=== PATIENT | male | born 1980 | race Caucasian/White ===

== ENCOUNTER 2016-02-23 18:54 | Inpatient (IN) | payer OTHER ==
[2016-02-23 19:13] VITALS: BMI 28.7
--- NOTE | 2016-02-23 19:24 | HP ---
CIWA Score - CIWA Score Nausea/Vomitin Muscle Tremors: 4-Moderate,w/Arms Extend Anxiety: 4-Mod. Anxious/Guarded Agitation: 4-Moderately Restless Paroxysmal Sweats: 3 Orientation: 0-Oriented Tacttile Disturbances: 0-None Auditory Disturbances: 0-None Visual Disturbances: 0-None Headache: 0-None Present CIWA-Ar Total Score: 17 Admission ROS BHS - HPI Chief Complaint: WITHDRAWAL SX. Allergies/Adverse Reactions: Allergies Allergy/AdvReac Type Severity Reaction Status Date / Time No Known Allergies Allergy Verified 12/29/13 19:32 History of Present Illness: 35 Y/O MAN WITH A LONG HX. OF ALCOHOLISM IS ADMITTED FOR DETOX. PT. HAS BEEN IN PREVIOUS DETOX, DENIES SIGNIFICANT SOBRIETY. Exam Limitations: No Limitations - Ebola screening Have you traveled outside of the country in the last 21 days: No (N) Have you had contact with anyone from an Ebola affected area: No Have you been sick,other than usual withdrawal symptoms: No Do you have a fever: No - Review of Systems Constitutional: Diaphoresis EENT: reports: No Symptoms Reported Respiratory: reports: No Symptoms reported Cardiac: reports: No Symptoms Reported GI: reports: Nausea, Abdominal cramping : reports: Frequency Musculoskeletal: reports: No Symptoms Reported Integumentary: reports: Sweating Neuro: reports: Tremors, Other (FREQUENT BLACKOUTS) Endocrine: reports: No Symptoms Reported Hematology: reports: No Symptoms Reported Psychiatric: reports: No Sypmtoms Reported Other Systems: Reviewed and Negative Patient History - Patient Medical History Hx Anemia: No Hx Asthma: No Hx Chronic Obstructive Pulmonary Disease (COPD): No Hx Cancer: No Hx Cardiac Disorders: No Hx Congestive Heart Failure: No Hx Hypertension: No Hx Hypercholesterolemia: No Hx Pacemaker: No HX Cerebrovascular Accident: No Hx Seizures: No Hx Dementia: No Hx Diabetes: No Hx Gastrointestinal Disorders: No Hx Liver Disease: No Hx Genitourinary Disorders: No Hx Sexually Transmitted Disorders: No Hx Renal Disease (ESRD): No Hx Thyroid Disease: No Hx Human Immunodeficiency Virus (HIV): No Hx Hepatitis C: No Hx Depression: Yes Hx Suicide Attempt: No Hx Bipolar Disorder: No Hx Schizophrenia: No - Patient Surgical History Past Surgical History: Yes Hx Neurologic Surgery: No Hx Cataract Extraction: No Hx Cardiac Surgery: No Hx Lung Surgery: No Hx Breast Surgery: No Hx Breast Biopsy: No Hx Abdominal Surgery: Yes (RIGHT INGUINAL HERNIA AT AGE 9 MONTHS) Hx Appendectomy: No Hx Cholecystectomy: No Hx Genitourinary Surgery: No Hx Section: No Hx Orthopedic Surgery: No Other Surgical History: DRAINAGE OF ABSCESS LEFT BUTTOCK AT [facility] IN 09/04 Anesthesia Reaction: No - PPD History Previous Implant?: Yes Documented Results: Negative w/proof Implanted On Prior [facility] Admission?: Yes Date: 07/16/15 Results: 0mm PPD to be Administered?: No - Smoking Cessation Smoking history: Current every day smoker Have you smoked in the past 12 months: Yes Aproximately how many cigarettes per day: 20 Hx Chewing Tobacco Use: No Initiated information on smoking cessation: Yes 'Breaking Loose' booklet given: 02/23/16 - Substance & Tx. History Hx Alcohol Use: Yes Hx Substance Use: Yes Substance Use Type: Alcohol, Cocaine Hx Substance Use Treatment: Yes (DETOX) - Substances Abused Alcohol Route: Oral Frequency: Daily Amount used: BEER 4(6 PACKS) VODKA 1 PINT Age of first use: 12 Date of Last Use: 02/23/16 Cocaine Route: Inhalation Frequency: Daily Amount used: 1 GRAM Age of first use: 18 Date of Last Use: 02/23/16 Family Disease History - Family Disease History Family Disease History: Other: Father (ALCOHOL), Brother (ALCOHOL) Admission Physical Exam S - Vital Signs Vital Signs: Vital Signs - 24 hr 02/23/16 19:05 Temperature 97.0 F L Pulse Rate 85 Respiratory 20 Rate Blood Pressure 124/78 - Physical General Appearance: Yes: Alcohol on Breath, Tremorous, Irritable, Sweating, Anxious HEENTM: Yes: Within Normal Limits Respiratory: Yes: Chest Non-Tender, Lungs Clear, Normal Breath Sounds Neck: Yes: Supple Breast: Yes: Breast Exam Deferred Cardiology: Yes: Regular Rhythm, Regular Rate, S1, S2 Abdominal: Yes: Normal Bowel Sounds, Non Tender, Flat, Soft Genitourinary: Yes: Within Normal Limits Back: Yes: Within Normal Limits Musculoskeletal: Yes: Within Normal Limits Extremities: Yes: Within Normal Limits Neurological: Yes: Fully Oriented, Alert Integumentary: Yes: Diaphoresis Lymphatic: Yes: Within Normal Limits - Diagnostic (1) Alcohol dependence with uncomplicated withdrawal Current Visit: Yes Status: Acute (2) Cocaine dependence Current Visit: Yes Status: Acute Qualifiers: Substance use status: uncomplicated Qualified Code(s): F14.20 - Cocaine dependence, uncomplicated (3) Nicotine dependence Current Visit: Yes Status: Chronic Qualifiers: Nicotine product type: cigarettes Substance use status: uncomplicated Qualified Code(s): F17.210 - Nicotine dependence, cigarettes, uncomplicated Cleared for Admission BHS - Detox or Rehab [facility] Level of Care: Medically Managed Detox Regimen/Protocol: Librium S Breath Alcohol Content Breath Alcohol Content: 0.263 Urine Drug Screen - Results Drug Screen Negative: No Urine Drug Screen Results: BZO-Benzodiazepines
[2016-02-23] MEDS ORDERED: MAGNESIUM CITRATE 300 ML BOTTLE PO PRN (19:32)
[2016-02-23] MEDS ORDERED: chlordiazePOXIDE HCL 25 MG CAPSULE PO PRN (19:32)
[2016-02-23] MEDS ORDERED: MENTHOL/PHENOL 1 EACH UD MM PRN (19:32)
[2016-02-23] MEDS ORDERED: MAG HYDROX/AL HYDROX/SIMETH 30 ML UNIT-DOSE CUP PO PRN (19:32)
[2016-02-23] MEDS ORDERED: P-EPHED 60MG/TRIPROLIDI 2.5MG TABLET PO PRN (19:32)
[2016-02-23] MEDS ORDERED: chlordiazePOXIDE HCL 25 MG CAPSULE PO ONE (19:32)
[2016-02-23] MEDS ORDERED: NICOTINE POLACRILEX 2 MG GUM BC PRN (19:32)
[2016-02-23] MEDS ORDERED: hydrOXYzine PAMOATE 50 MG CAPSULE (FP) PO PRN (19:32)
[2016-02-23] MEDS ORDERED: MAGNESIUM HYDROX 2400MG/30ML ORAL SUSPENSION 30 ML CUP PO PRN (19:32)
[2016-02-23] MEDS ORDERED: guaiFENesin/D-METHORPHAN HB 10 ML UNIT-DOSE CUPS PO PRN (19:32)
[2016-02-23] MEDS ORDERED: LOPERAMIDE HCL 2 MG CAPSULE PO PRN (19:32)
[2016-02-23] MEDS ORDERED: ACETAMINOPHEN 325 MG TABLET (FP) PO PRN (19:32)
[2016-02-23] MEDS ORDERED: IBUPROFEN 400 MG TABLET (FP) PO PRN (19:32)
[2016-02-23] MEDS: NICOTINE 21 MG/24 HOURS TOPICAL PATCH TD SCH (20:10)
[2016-02-23] MEDS: chlordiazePOXIDE HCL 25 MG CAPSULE PO SCH (22:12)
[2016-02-23] MEDS: THIAMINE HCL 100 MG TABLET (FP) PO SCH (22:12)
[2016-02-23] MEDS: diphenhydrAMINE HCL 50 MG CAPSULE PO PRN (22:13)
[2016-02-24] MEDS: chlordiazePOXIDE HCL 25 MG CAPSULE PO SCH ×4 (05:40→22:13)
[2016-02-24 09:47] LABS: MCH 31.8 pg (25.7-33.7); MCHC 33.7 g/dl (32.0-35.9); MEAN CELL VOLUME 94.4 fl (80-96); MEAN PLT VOLUME 8.2 fl (7.5-11.1); PLATELET COUNT 356 K/MM3 (134-434); RDW 13.9 % (11.9-15.9); WHITE BLOOD COUNT 7.2 K/mm3 (4.0-10.0)
[2016-02-24] MEDS: NICOTINE 21 MG/24 HOURS TOPICAL PATCH TD SCH (10:06)
[2016-02-24] MEDS: PRENATAL VITAMINS W/ FOLIC ACID TABLET (FP) PO SCH (10:06)
[2016-02-24 10:15] LABS: ALBUMIN 3.9 g/dl (3.4-5.0); ALK PHOS 78 U/L (45-117); ANION GAP 7 (8-16); BILIRUBIN,TOTAL 0.5 mg/dL (0.2-1.0); CALCIUM 9.1 mg/dL (8.5-10.1); CO2 27 mmol/L (21-32); CREATININE 0.8 mg/dL (0.7-1.3); GLUCOSE,RANDOM 87 mg/dL (74-106); SGOT/AST 32 U/L (15-37); SGPT/ALT 44 U/L (12-78)
--- NOTE | 2016-02-24 13:56 | PN ---
S CIWA - CIWA Score Nausea/Vomitin Muscle Tremors: 4-Moderate,w/Arms Extend Anxiety: 4-Mod. Anxious/Guarded Agitation: 4-Moderately Restless Paroxysmal Sweats: 3 Orientation: 0-Oriented Tacttile Disturbances: 0-None Auditory Disturbances: 0-None Visual Disturbances: 0-None Headache: 0-None Present CIWA-Ar Total Score: 17 BHS Progress Note (SOAP) Subjective: ANXIETY,TREMORS,SWEATING,INTERRUPTED SLEEP,RESTLESS. Objective: 02/24/16 13:53 Vital Signs - 8 hr 02/24/16 02/24/16 02/24/16 06:00 10:00 13:40 Temperature 98.2 F 97.9 F 98.1 F Pulse Rate 76 67 69 Respiratory 18 18 18 Rate Blood Pressure 121/70 127/66 120/78 Laboratory Tests 02/24/16 02/24/16 07:20 07:30 WBC 7.2 RBC 4.06 Hgb 12.9 Hct 38.3 MCV 94.4 MCHC 33.7 RDW 13.9 Plt Count 356 D MPV 8.2 Sodium 141 Potassium 4.5 Chloride 107 Carbon Dioxide 27 Anion Gap 7 L BUN 13 Creatinine 0.8 Creat Clearance w eGFR > 60 Random Glucose 87 Calcium 9.1 Total Bilirubin 0.5 D AST 32 D ALT 44 D Alkaline Phosphatase 78 Total Protein 7.0 Albumin 3.9 LABS NOTED Assessment: 02/24/16 13:56 WITHDRAWAL SX. Plan: CONTINUE DETOX
[2016-02-24] MEDS: diphenhydrAMINE HCL 50 MG CAPSULE PO PRN (22:13)
[2016-02-24] MEDS: THIAMINE HCL 100 MG TABLET (FP) PO SCH (22:14)
[2016-02-24 23:04] LABS: URINE APPEARANCE CLEAR; URINE BILIRUBIN NEGATIVE (NEGATIVE); URINE BLOOD NEGATIVE (NEGATIVE); URINE COLOR STRAW; URINE GLUCOSE (UA) NEGATIVE (NEGATIVE); URINE KETONE NEGATIVE (NEGATIVE); URINE LEUK ESTERASE NEGATIVE (NEGATIVE); URINE NITRITE NEGATIVE (NEGATIVE); URINE PROTEIN NEGATIVE (NEGATIVE); URINE UROBILINOGEN NEGATIVE E.U./dl (0.2-1.0)
[2016-02-25] MEDS: chlordiazePOXIDE HCL 25 MG CAPSULE PO SCH ×3 (05:42→17:34)
[2016-02-25] MEDS: PRENATAL VITAMINS W/ FOLIC ACID TABLET (FP) PO SCH (10:26)
[2016-02-25] MEDS: NICOTINE 21 MG/24 HOURS TOPICAL PATCH TD SCH (10:27)
--- NOTE | 2016-02-25 10:54 | PN ---
S CIWA - CIWA Score Nausea/Vomitin Muscle Tremors: 3 Anxiety: 2 Agitation: 2 Paroxysmal Sweats: 1-Minimal Palms Moist Orientation: 0-Oriented Tacttile Disturbances: 1-Very Mild Itch/Numbness Auditory Disturbances: 1-Very Mild Visual Disturbances: 1-Very Mild Sensitivity Headache: 2-Mild CIWA-Ar Total Score: 16 BHS Progress Note (SOAP) Subjective: ALERT,IRRITABLE,ANXIOUS,INTERRUPTED SLEEP Objective: 02/25/16 10:53 Vital Signs Temperature 98.6 F 02/25/16 10:22 Pulse Rate 73 02/25/16 10:22 Respiratory Rate 18 02/25/16 10:22 Blood Pressure 121/78 02/25/16 10:22 O2 Sat by Pulse Oximetry (%) Laboratory Last Values WBC 7.2 K/mm3 (4.0-10.0) 02/24/16 07:30 RBC 4.06 M/mm3 (4.00-5.60) 02/24/16 07:30 Hgb 12.9 GM/dL (11.7-16.9) 02/24/16 07:30 Hct 38.3 % (35.4-49) 02/24/16 07:30 MCV 94.4 fl (80-96) 02/24/16 07:30 MCHC 33.7 g/dl (32.0-35.9) 02/24/16 07:30 RDW 13.9 % (11.9-15.9) 02/24/16 07:30 Plt Count 356 K/MM3 (134-434) D 02/24/16 07:30 MPV 8.2 fl (7.5-11.1) 02/24/16 07:30 Sodium 141 mmol/L (136-145) 02/24/16 07:20 Potassium 4.5 mmol/L (3.5-5.1) 02/24/16 07:20 Chloride 107 mmol/L (98-107) 02/24/16 07:20 Carbon Dioxide 27 mmol/L (21-32) 02/24/16 07:20 Anion Gap 7 (8-16) L 02/24/16 07:20 BUN 13 mg/dL (7-18) 02/24/16 07:20 Creatinine 0.8 mg/dL (0.7-1.3) 02/24/16 07:20 Creat Clearance w eGFR > 60 (>60) 02/24/16 07:20 Random Glucose 87 mg/dL (74-106) 02/24/16 07:20 Calcium 9.1 mg/dL (8.5-10.1) 02/24/16 07:20 Total Bilirubin 0.5 mg/dL (0.2-1.0) D 02/24/16 07:20 AST 32 U/L (15-37) D 02/24/16 07:20 ALT 44 U/L (12-78) D 02/24/16 07:20 Alkaline Phosphatase 78 U/L (45-117) 02/24/16 07:20 Total Protein 7.0 g/dl (6.4-8.2) 02/24/16 07:20 Albumin 3.9 g/dl (3.4-5.0) 02/24/16 07:20 Urine Color Straw 02/24/16 22:45 Urine Appearance Clear 02/24/16 22:45 Urine pH 6.0 (5.0-8.0) 02/24/16 22:45 Ur Specific [place] 1.006 (1.001-1.035) 02/24/16 22:45 Urine Protein Negative (NEGATIVE) 02/24/16 22:45 Urine Glucose (UA) Negative (NEGATIVE) 02/24/16 22:45 Urine Ketones Negative (NEGATIVE) 02/24/16 22:45 Urine Blood Negative (NEGATIVE) 02/24/16 22:45 Urine Nitrite Negative (NEGATIVE) 02/24/16 22:45 Urine Bilirubin Negative (NEGATIVE) 02/24/16 22:45 Urine Urobilinogen Negative E.U./dl (0.2-1.0) 02/24/16 22:45 Ur Leukocyte Esterase Negative (NEGATIVE) 02/24/16 22:45 RPR Titer Nonreactive (NONREACTIVE) 02/24/16 07:20 Assessment: 02/25/16 10:53 WITHDRAWAL SYMPTOM Plan: CONTINUE DETOX
--- NOTE | 2016-02-25 14:43 | PN ---
[facility] Progress Note Note: Psychiatry Attending's note: Approached for psychiatric evaluation. Patient declined." I don't need psychiatrists.I need my counselor." Mr Sumner,calmly,walked out of the consultation office. Discussed with nursing staff.
[2016-02-25] MEDS: diphenhydrAMINE HCL 50 MG CAPSULE PO PRN (22:05)
[2016-02-25] MEDS: THIAMINE HCL 100 MG TABLET (FP) PO SCH (22:05)
[2016-02-25] MEDS: chlordiazePOXIDE 5 MG CAPSULE PO SCH (22:06)
[2016-02-26] MEDS: chlordiazePOXIDE 5 MG CAPSULE PO SCH ×3 (05:13→17:20)
--- NOTE | 2016-02-26 10:27 | PN ---
BHS Progress Note (SOAP) Subjective: agitation anxiety little sweats Objective: 02/26/16 10:26 Vital Signs Temperature 97 F L 02/26/16 06:50 Pulse Rate 51 L 02/26/16 06:50 Respiratory Rate 16 02/26/16 06:50 Blood Pressure 118/74 02/26/16 06:50 O2 Sat by Pulse Oximetry (%) awake/alert ambulating no acute distress Assessment: 02/26/16 10:26 withdrawal sx Plan: continue detox increase fluids d/c in am
[2016-02-26] MEDS: PRENATAL VITAMINS W/ FOLIC ACID TABLET (FP) PO SCH (10:28)
[2016-02-26] MEDS: NICOTINE 21 MG/24 HOURS TOPICAL PATCH TD SCH (10:28)
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
[2016-02-26] MEDS: diphenhydrAMINE HCL 50 MG CAPSULE PO PRN (22:20)
[2016-02-26] MEDS: chlordiazePOXIDE HCL 10 MG CAPSULE PO SCH (22:20)
[2016-02-26] MEDS: THIAMINE HCL 100 MG TABLET (FP) PO SCH (22:20)
[2016-02-27] MEDS: chlordiazePOXIDE HCL 10 MG CAPSULE PO SCH (05:57)
[2016-02-27 06:35] VITALS: BP 104/66; PULSE 60; TEMP 98.2
--- NOTE | 2016-02-27 09:02 | DS ---
[facility] Detox Discharge Summary Admission Date: 02/23/16 Discharge Date: 02/27/16 - History Present History: Alcohol Dependence, Cocaine Dependence - Physical Exam Results Vital Signs: Vital Signs Temperature 98.2 F 02/27/16 06:34 Pulse Rate 60 02/27/16 06:34 Respiratory Rate 16 02/27/16 06:34 Blood Pressure 104/66 02/27/16 06:34 O2 Sat by Pulse Oximetry (%) - Treatment Hospital Course: Detox Protocol Followed, Detoxed Safely, Responded well, Discharged Condition Good - Medication Discharge Medications: Ambulatory Orders NK [No Known Home Medication] 12/24/13 - Diagnosis (1) Alcohol dependence with uncomplicated withdrawal Current Visit: Yes Status: Chronic (2) Cocaine dependence Current Visit: Yes Status: Chronic Qualifiers: Substance use status: uncomplicated Qualified Code(s): F14.20 - Cocaine dependence, uncomplicated (3) Nicotine dependence Current Visit: Yes Status: Chronic Qualifiers: Nicotine product type: cigarettes Substance use status: uncomplicated Qualified Code(s): F17.210 - Nicotine dependence, cigarettes, uncomplicated (4) Contusion of right eyebrow Current Visit: No Status: Acute Qualifiers: Encounter type: subsequent encounter Qualified Code(s): S00.11XD - Contusion of right eyelid and periocular area, subsequent encounter (5) Depression Current Visit: Yes Status: Chronic Qualifiers: Depression Type: unspecified Qualified Code(s): F32.9 - Major depressive disorder, single episode, unspecified - AMA Did Patient Leave Against Medical Advice: No
== END 2016-02-27 10:45 | disposition home or self-care (01) | DRG 774 ==
LOC: YASAS 18:54 → Y6N 19:15
PROVIDERS: ADMIT Internal Medicine; ATTEND Internal Medicine
PROC: HZ2ZZZZ Detoxification Services for Substance Abuse Treatment (ICD-10-PCS; principal; 2016-02-23)
DX: F10.230 Alcohol dependence with withdrawal, uncomplicated (principal); F14.20 Cocaine dependence, uncomplicated; F17.210 Nicotine dependence, cigarettes, uncomplicated; F32.9 Major depressive disorder, single episode, unspecified; S00.11XA Contusion of right eyelid and periocular area, initial encounter; Y00.XXXA Assault by blunt object, initial encounter; Y93.89 Activity, other specified; Y92.238 Other place in hospital as the place of occurrence of the external cause
CPT/HCPCS: 36415; 80053; 81003; 85027; 86593; 93005; 93010

== ENCOUNTER 2016-03-13 08:49 | Inpatient (IN) | payer OTHER ==
[2016-03-13 09:03] VITALS: BMI 27.3
--- NOTE | 2016-03-13 12:55 | HP ---
Admission [facility] Chief Complaint: REHAB TX FOR ALCOHOL AND COCAINE DEPENDENCE Allergies/Adverse Reactions: Allergies Allergy/AdvReac Type Severity Reaction Status Date / Time No Known Allergies Allergy Verified 12/29/13 19:32 History of Present Illness: 35 Y/O H/M WITH A HX OF ALCOHOL AND COCAINE DEPENDENCE SEEKING REHAB TX. PT DETOXED HERE TILL 02/27/16. Exam Limitations: No Limitations - Ebola screening Have you traveled outside of the country in the last 21 days: No Have you had contact with anyone from an Ebola affected area: No Have you been sick,other than usual withdrawal symptoms: No - Review of Systems Constitutional: Chills, Night Sweats EENT: reports: No Symptoms Reported Respiratory: reports: No Symptoms reported Cardiac: reports: Lightheadedness GI: reports: Diarrhea, Nausea, Vomiting, Indigestion : reports: No Symptoms Reported Musculoskeletal: reports: No Symptoms Reported Integumentary: reports: No Symptoms Reported Neuro: reports: Headache, Tremors, Dizziness Endocrine: reports: No Symptoms Reported Hematology: reports: No Symptoms Reported Psychiatric: reports: Orientated x3, Anxious, Depressed Other Systems: Reviewed and Negative Patient History - Patient Medical History Hx Anemia: No Hx Asthma: No Hx Chronic Obstructive Pulmonary Disease (COPD): No Hx Cancer: No Hx Cardiac Disorders: No Hx Congestive Heart Failure: No Hx Hypertension: No Hx Hypercholesterolemia: No Hx Pacemaker: No HX Cerebrovascular Accident: No Hx Seizures: No Hx Dementia: No Hx Diabetes: No Hx Gastrointestinal Disorders: No Hx Liver Disease: No Hx Genitourinary Disorders: No Hx Sexually Transmitted Disorders: No Hx Renal Disease (ESRD): No Hx Thyroid Disease: No Hx Human Immunodeficiency Virus (HIV): No (NEGATIVE HX) Hx Hepatitis C: No Hx Depression: No (BUT SAD ON/OFF) Hx Suicide Attempt: No (DENIES) Hx Bipolar Disorder: No Hx Schizophrenia: No - Patient Surgical History Past Surgical History: Yes Hx Neurologic Surgery: No Hx Cataract Extraction: No Hx Cardiac Surgery: No Hx Lung Surgery: No Hx Breast Surgery: No Hx Breast Biopsy: No Hx Abdominal Surgery: Yes (RIGHT INGUINAL HERNIA AT AGE 9 MONTHS) Hx Appendectomy: No Hx Cholecystectomy: No Hx Genitourinary Surgery: No Hx Section: No Hx Orthopedic Surgery: No Other Surgical History: DRAINAGE OF ABSCESS LEFT BUTTOCK AT [facility] IN Anesthesia Reaction: No - PPD History Previous Implant?: Yes Documented Results: Negative w/proof Implanted On Prior R Admission?: Yes Date: 07/16/15 Results: 0mm PPD to be Administered?: No - Reproductive History Patient is a Female of Child Bearing Age (11 -55 yrs old): No (MALE) - Smoking Cessation Smoking history: Current some day smoker Have you smoked in the past 12 months: Yes Aproximately how many cigarettes per day: 1 Hx Chewing Tobacco Use: No Initiated information on smoking cessation: Yes 'Breaking Loose' booklet given: 03/13/16 - Substance & Tx. History Hx Alcohol Use: Yes (BEER) Hx Substance Use: Yes (COCAINE) Substance Use Type: Alcohol, Cocaine Hx Substance Use Treatment: Yes ([facility] [place]) - Substances Abused Alcohol Route: Oral Frequency: Daily Amount used: 1 CASE OF BEERS Age of first use: 12 Date of Last Use: 03/13/16 Cocaine Route: Inhalation Frequency: Daily Amount used: 1 GRAM ($40.00) Age of first use: 18 Date of Last Use: 03/12/16 Family Disease History - Family Disease History Family Disease History: Other: Father (ALCOHOL), Brother (ALCOHOL) Admission Physical Exam BHS - Vital Signs Vital Signs: Vital Signs - 24 hr 03/13/16 08:57 Temperature 98.2 F Pulse Rate 68 Respiratory 18 Rate Blood Pressure 120/74 - Physical General Appearance: Yes: Mild Distress, Irritable, Anxious HEENTM: Yes: EOMI, Normocephalic, SHALA, Pharynx Normal Respiratory: Yes: Chest Non-Tender, Lungs Clear, Normal Breath Sounds, No Respiratory Distress Neck: Yes: Supple, Trachea in good position Breast: Yes: Breast Exam Deferred Cardiology: Yes: Regular Rhythm, Regular Rate, S1, S2 Abdominal: Yes: Normal Bowel Sounds, Non Tender, Flat, Soft Genitourinary: Yes: Other (N/C) Back: Yes: Within Normal Limits Musculoskeletal: Yes: full range of Motion, Gait Steady Extremities: Yes: Normal Range of Motion, Non-Tender Neurological: Yes: alterations supervisor II-XII NML intact, Fully Oriented, Alert, Motor Strength 5/5 Integumentary: Yes: Normal Color, Dry, Warm Lymphatic: Yes: Within Normal Limits - Diagnostic (1) Alcohol dependence with uncomplicated withdrawal Status: Chronic (2) Cocaine dependence Status: Chronic Qualifiers: Substance use status: uncomplicated Qualified Code(s): F14.20 - Cocaine dependence, uncomplicated (3) Nicotine dependence Status: Chronic Qualifiers: Nicotine product type: cigarettes Substance use status: uncomplicated Qualified Code(s): F17.210 - Nicotine dependence, cigarettes, uncomplicated Cleared for Admission BHS - Detox or Rehab Claeared for Rehab Admission: Yes BHS Breath Alcohol Content Breath Alcohol Content: 0.048 Urine Drug Screen - Results Drug Screen Negative: No Urine Drug Screen Results: LANDRY-Cocaine
[2016-03-13] MEDS ORDERED: guaiFENesin/D-METHORPHAN HB 10 ML UNIT-DOSE CUPS PO PRN (15:52)
[2016-03-13] MEDS ORDERED: MAGNESIUM CITRATE 300 ML BOTTLE PO PRN (15:52)
[2016-03-13] MEDS ORDERED: diphenhydrAMINE HCL 50 MG CAPSULE PO PRN (15:52)
[2016-03-13] MEDS ORDERED: MENTHOL/PHENOL 1 EACH UD MM PRN (15:52)
[2016-03-13] MEDS ORDERED: LOPERAMIDE HCL 2 MG CAPSULE PO PRN (15:52)
[2016-03-13] MEDS ORDERED: hydrOXYzine PAMOATE 25 MG CAPSULE (FP) PO PRN (15:52)
[2016-03-13] MEDS ORDERED: NICOTINE POLACRILEX 2 MG GUM BC PRN (15:52)
[2016-03-13] MEDS ORDERED: MAGNESIUM HYDROX 2400MG/30ML ORAL SUSPENSION 30 ML CUP PO PRN (15:52)
[2016-03-13] MEDS ORDERED: P-EPHED 60MG/TRIPROLIDI 2.5MG TABLET PO PRN (15:52)
[2016-03-13] MEDS ORDERED: ACETAMINOPHEN 325 MG TABLET (FP) PO PRN (15:52)
[2016-03-13] MEDS ORDERED: IBUPROFEN 400 MG TABLET (FP) PO PRN (15:52)
[2016-03-13] MEDS ORDERED: MAG HYDROX/AL HYDROX/SIMETH 30 ML UNIT-DOSE CUP PO PRN (15:52)
[2016-03-13 18:26] LABS: URINE APPEARANCE CLEAR; URINE BILIRUBIN NEGATIVE (NEGATIVE); URINE BLOOD NEGATIVE (NEGATIVE); URINE COLOR LTYELLOW; URINE GLUCOSE (UA) NEGATIVE (NEGATIVE); URINE KETONE TRACE (NEGATIVE); URINE LEUK ESTERASE NEGATIVE (NEGATIVE); URINE NITRITE NEGATIVE (NEGATIVE); URINE PROTEIN NEGATIVE (NEGATIVE); URINE UROBILINOGEN NEGATIVE E.U./dl (0.2-1.0)
[2016-03-13 18:34] LABS: ALBUMIN 4.7 g/dl (3.4-5.0); ALK PHOS 88 U/L (45-117); ANION GAP 9 (8-16); BILIRUBIN,TOTAL 0.6 mg/dL (0.2-1.0); CALCIUM 9.6 mg/dL (8.5-10.1); CO2 30 mmol/L (21-32); CREATININE 0.9 mg/dL (0.7-1.3); GLUCOSE,RANDOM 91 mg/dL (74-106); SGOT/AST 21 U/L (15-37); SGPT/ALT 23 U/L (12-78); TOT PROT 7.9 g/dl (6.4-8.2)
[2016-03-13] MEDS ORDERED: THIAMINE HCL 100 MG TABLET (FP) PO SCH (22:00)
[2016-03-14 00:21] LABS: MCH 31.3 pg (25.7-33.7); MCHC 32.8 g/dl (32.0-35.9); MEAN CELL VOLUME 95.3 fl (80-96); PLATELET COUNT 288 K/MM3 (134-434); RDW 14.7 % (11.9-15.9)
--- NOTE | 2016-03-14 06:35 | HP ---
Psychiatrist Admission - Data Date of interview: 03/14/16 Admission source: Self-referral Identifying data: This is the second [facility] admission for this 35 years old single male, unemployed, homeless Medical History: Significant for history of S/P right Inguinal Hernia repair and S/P drainage of abscess left buttockin August 2012 Psychiatric History: Denies history of previous psychiatric treatment Physical/Sexual Abuse/Trauma History: Denies history of physical, sexual abuse as well as DV relationship Additional Comment: Reports history 2 misdemeanor arrests. Denies being on probation at present Vital Signs: Vital Signs - 24 hr 03/13/16 03/14/16 03/14/16 08:57 00:30 03:30 Temperature 98.2 F Pulse Rate 68 Respiratory 18 18 18 Rate Blood Pressure 120/74 Allergies/Adverse Reactions: Allergies Allergy/AdvReac Type Severity Reaction Status Date / Time No Known Allergies Allergy Verified 12/29/13 19:32 Date of last physical exam: 03/13/16 Concur with the findings of this exam: Yes - Substance Abuse/Tx History Hx Alcohol Use: Yes Hx Substance Use: Yes Substance Use Type: Alcohol (Started drinking alcohol at age 12, consumes one case of beer daily. Last drink on 03/13/16), Cocaine (Started using cocaine at age 18, consumes one gram($40) worth daily. Last used on 03/12/16) Hx Substance Use Treatment: Yes (2 previous inpt detox & one inpt rehab(Dec 2013 ) @ [facility]) - Admission Criteria Previous failed treatment: Yes Poor recovery environment: Yes Comorbidities: Yes Lacks judgement: Yes Mental Status Exam - Mental Status Exam Alert and Oriented to: Time, Place, Person Cognitive Function: Fair Patient Appearance: Well Groomed Mood: Irritable Affect: Appropriate Patient Behavior: Cooperative (superficially) Speech Pattern: Clear Voice Loudness: Normal Thought Process: Intact Thought Disorder: Not Present Hallucinations: Denies Suicidal Ideation: Denies Homicidal Ideation: Denies Insight/Judgement: Poor Sleep: Well Appetite: Good Muscle strength/Tone: Normal Gait/Station: Normal Psychiatric Findings - Problem List ([place] 1, 2,3) (1) Alcohol dependence with uncomplicated withdrawal Current Visit: Yes Status: Chronic (2) Cocaine dependence Current Visit: Yes Status: Chronic Qualifiers: Substance use status: uncomplicated Qualified Code(s): F14.20 - Cocaine dependence, uncomplicated (3) Nicotine dependence Current Visit: Yes Status: Chronic Qualifiers: Nicotine product type: cigarettes Substance use status: uncomplicated Qualified Code(s): F17.210 - Nicotine dependence, cigarettes, uncomplicated (4) Substance induced mood disorder Current Visit: Yes Status: Acute - Initial Treatment Plan Initial Treatment Plan: Patient decided that this type of treatment is not for him and requests to leave against medical advice
[2016-03-14 08:05] VITALS: BP 110/66; PULSE 69; TEMP 98.5
[2016-03-14] MEDS ORDERED: NICOTINE 14 MG/24 HOURS TOPICAL PATCH TD SCH (10:00)
[2016-03-14] MEDS ORDERED: PRENATAL VITAMINS W/ FOLIC ACID TABLET (FP) PO SCH (10:00)
--- NOTE | 2016-03-14 10:53 | EKG ---
Test Reason : Blood Pressure : / mmHG Vent. Rate : 057 BPM Atrial Rate : 057 BPM P-R Int : 162 ms QRS Dur : 110 ms QT Int : 440 ms P-R-T Axes : 040 -41 016 degrees QTc Int : 428 ms SINUS BRADYCARDIA LEFT AXIS DEVIATION NON-SPECIFIC INTRA-VENTRICULAR CONDUCTION DELAY ABNORMAL ECG Confirmed by KAYLIN SCHNEIDER MD ([id number]) on 03/14/2016 10:53:08 AM Referred By: Confirmed By:KAYLIN SCHNEIDER MD
--- NOTE | 2016-03-17 13:01 | EKG ---
Test Reason : Blood Pressure : / mmHG Vent. Rate : 074 BPM Atrial Rate : 074 BPM P-R Int : 154 ms QRS Dur : 110 ms QT Int : 402 ms P-R-T Axes : 111 -34 -26 degrees QTc Int : 446 ms NORMAL SINUS RHYTHM LEFT AXIS DEVIATION INFERIOR INFARCT , AGE UNDETERMINED ABNORMAL ECG NO PREVIOUS ECGS AVAILABLE Confirmed by LELA DOLL MD ([id number]) on 03/17/2016 1:01:15 PM Referred By: Confirmed By:LELA DOLL MD
== END 2016-03-14 09:05 | disposition left against medical advice (07) | DRG 770 ==
LOC: YASAS 08:49 → Y3W 12:54
PROVIDERS: ADMIT Psychiatry & Neurology Psychiatry; ATTEND Psychiatry & Neurology Psychiatry
PROC: HZ42ZZZ Group Counseling for Substance Abuse Treatment, Cognitive-Behavioral (ICD-10-PCS; principal; 2016-03-13)
DX: F10.20 Alcohol dependence, uncomplicated (principal); F14.20 Cocaine dependence, uncomplicated; F17.210 Nicotine dependence, cigarettes, uncomplicated; F19.24 Other psychoactive substance dependence with psychoactive substance-induced mood disorder
CPT/HCPCS: 36415; 80053; 81003; 85027; 86593; 93005; 93010

== ENCOUNTER 2023-11-11 20:11 | Inpatient (IN) | payer OTHER ==
[2023-11-11 20:49] VITALS: BMI 24.3
[2023-11-11] MEDS ORDERED: MAGNESIUM HYDROX 2400MG/30ML ORAL SUSPENSION 30 ML CUP PO PRN (21:22)
[2023-11-11] MEDS ORDERED: ONDANSETRON *ODT* 4 MG TABLET SL PRN (21:22)
[2023-11-11] MEDS ORDERED: guaiFENesin 600 MG TABLET.ER (FP) PO PRN (21:22)
[2023-11-11] MEDS ORDERED: LOPERAMIDE HCL 2 MG CAPSULE PO PRN (21:22)
[2023-11-11] MEDS ORDERED: BISMUTH SUBSALICYLATE 524 MG/30 ML PO PRN (21:22)
[2023-11-11] MEDS ORDERED: NALOXONE HCL 0.4 MG/ML VIAL IM PRN (21:22)
[2023-11-11] MEDS ORDERED: DICYCLOMINE HCL 10 MG CAPSULE PO PRN (21:22)
[2023-11-11] MEDS ORDERED: POLYETHYLENE GLYCOL (HEALTHYLAX) 3350 17 GM PACKET PO PRN (21:22)
[2023-11-11] MEDS ORDERED: IBUPROFEN 400 MG TABLET (FP) PO PRN (21:22)
[2023-11-11] MEDS ORDERED: BENZOCAINE/MENTHOL (CHLORASEPTIC ) LOZENGE MM PRN (21:22)
[2023-11-11] MEDS ORDERED: NALOXONE (NARCAN) HCL 4 MG/0.1 ML SPRAY NS PRN (21:22)
[2023-11-11] MEDS ORDERED: MAG HYDROX/AL HYDROX/SIMETH 30 ML UNIT-DOSE CUP PO PRN (21:22)
[2023-11-11] MEDS ORDERED: BENZONATATE 200 MG CAPSULE PO PRN (21:22)
[2023-11-11] MEDS ORDERED: BACITRACIN ZINC 15 GM TUBE TOPICAL OINTMENT TP SCH (21:30)
[2023-11-11] MEDS ORDERED: BACITRACIN 0.9 GM PACKET TP SCH (21:54)
[2023-11-11] MEDS: THIAMINE 100 MG TABLET PO SCH (22:31)
[2023-11-11] MEDS: MELATONIN 5 MG TABLETS PO SCH (22:31)
[2023-11-11] MEDS: BACITRACIN 0.9 GM PACKET TP SCH (22:31)
[2023-11-11] MEDS: METHOCARBAMOL 500 MG TABLET PO PRN (22:32)
[2023-11-11] MEDS: hydrOXYzine PAMOATE 25 MG CAPSULE (FP) PO PRN (22:32)
[2023-11-12] MEDS: ACETAMINOPHEN 325 MG TABLET (FP) PO PRN (06:57)
[2023-11-12] MEDS: chlordiazePOXIDE HCL 25 MG CAPSULE PO ONE (08:50)
[2023-11-12] MEDS: PRENATAL VITAMINS W/ FOLIC ACID TABLET (FP) PO SCH (10:54)
[2023-11-12] MEDS: chlordiazePOXIDE HCL 25 MG CAPSULE PO SCH (10:54)
[2023-11-12 11:26] LABS: HEMOGLOBIN 11.9 GM/dL (11.7-16.9); MCH 34.4 pg (25.7-33.7); MCHC 34.9 g/dl (32.0-35.9); MEAN CELL VOLUME 98.7 fl (80-96); MEAN PLT VOLUME 8.3 fl (7.5-11.1); PLATELET COUNT 162 10^3/uL (134-434); RBC 3.45 M/mm3 (4.00-5.60); RDW 13.8 % (11.9-15.9)
[2023-11-12 12:31] LABS: CALCIUM 8.9 mg/dL (8.5-10.1)
[2023-11-12 12:32] LABS: ALBUMIN 3.2 g/dl (3.4-5.0); BLOOD UREA NITROGEN 7.5 mg/dL (7-18)
[2023-11-12 12:35] LABS: CREATININE 0.7 mg/dL (0.55-1.3)
[2023-11-12 12:36] LABS: BILIRUBIN,TOTAL 0.2 mg/dL (0.2-1)
[2023-11-12 12:37] LABS: TOT PROT 7.9 g/dl (6.4-8.2)
[2023-11-12] MEDS: chlordiazePOXIDE HCL 25 MG CAPSULE PO PRN (13:29)
[2023-11-12] MEDS: BACITRACIN 0.9 GM PACKET TP ONE (18:13)
[2023-11-12] MEDS: BACITRACIN 0.9 GM PACKET TP SCH (21:51)
[2023-11-13] MEDS: IBUPROFEN 600 MG TABLET (FP) PO PRN (22:30)
[2023-11-14] MEDS: chlordiazePOXIDE HCL 25 MG CAPSULE PO SCH (05:47)
[2023-11-15] MEDS: chlordiazePOXIDE HCL 10 MG CAPSULE PO SCH (05:25)
[2023-11-15] MEDS: chlordiazePOXIDE HCL 10 MG CAPSULE PO PRN (14:37)
[2023-11-16] MEDS: chlordiazePOXIDE HCL 10 MG CAPSULE PO SCH (05:31)
[2023-11-17] MEDS: chlordiazePOXIDE HCL 10 MG CAPSULE PO ONE (05:42)
[2023-11-17] MEDS: NALTREXONE HCL 50 MG TABLET PO ONE (15:20)
[2023-11-17 16:55] VITALS: RESP 16
[2023-11-17] MEDS: SILVER SULFADIAZINE 1% TOP CREAM 50 GM JAR TP SCH (19:00)
[2023-11-18 09:12] VITALS: BP 131/97; PULSE 75; TEMP 98.2
[2023-11-18] MEDS: NALTREXONE HCL 50 MG TABLET PO SCH (09:17)
== END 2023-11-18 09:21 | disposition other institution (70) | DRG 775 ==
LOC: YASAS 20:11 → Y3N 21:46
PROVIDERS: ADMIT Allergy & Immunology; ATTEND Surgery
PROC: HZ2ZZZZ Detoxification Services for Substance Abuse Treatment (ICD-10-PCS; principal; 2023-11-11)
PROC: HZ2ZZZZ Detoxification Services for Substance Abuse Treatment (ICD-10-PCS; 2023-11-11)
DX: F10.230 Alcohol dependence with withdrawal, uncomplicated (principal); F17.210 Nicotine dependence, cigarettes, uncomplicated; F19.24 Other psychoactive substance dependence with psychoactive substance-induced mood disorder; F32.9 Major depressive disorder, single episode, unspecified; E78.5 Hyperlipidemia, unspecified; M54.50 Low back pain, unspecified; T22.252A Burn of second degree of left shoulder, initial encounter; X98.1XXA Assault by hot tap water, initial encounter; Y92.238 Other place in hospital as the place of occurrence of the external cause; S91.001D Unspecified open wound, right ankle, subsequent encounter
CPT/HCPCS: 36415; 80053; 80305; 80307; 85027; 86780; 93005; 93010

== ENCOUNTER 2024-04-28 10:48 | Inpatient (IN) | payer OTHER ==
[2024-04-28 11:22] VITALS: BMI 25.8
[2024-04-28] MEDS ORDERED: BENZOCAINE/MENTHOL (CHLORASEPTIC ) LOZENGE MM PRN (11:41)
[2024-04-28] MEDS ORDERED: BISMUTH SUBSALICYLATE 262 MG/15 ML BTL PO PRN (11:41)
[2024-04-28] MEDS ORDERED: IBUPROFEN 600 MG TABLET (FP) PO PRN (11:41)
[2024-04-28] MEDS ORDERED: NALOXONE (NARCAN) HCL 4 MG/0.1 ML SPRAY NS PRN (11:41)
[2024-04-28] MEDS ORDERED: MAG HYDROX/AL HYDROX/SIMETH 30 ML UNIT-DOSE CUP PO PRN (11:41)
[2024-04-28] MEDS ORDERED: guaiFENesin 600 MG TABLET.ER (FP) PO PRN (11:41)
[2024-04-28] MEDS ORDERED: IBUPROFEN 400 MG TABLET (FP) PO PRN (11:41)
[2024-04-28] MEDS ORDERED: MAGNESIUM HYDROX 2400MG/30ML ORAL SUSPENSION 30 ML CUP PO PRN (11:41)
[2024-04-28] MEDS ORDERED: POLYETHYLENE GLYCOL (HEALTHYLAX) 3350 17 GM PACKET PO PRN (11:41)
[2024-04-28] MEDS ORDERED: DICYCLOMINE HCL 10 MG CAPSULE PO PRN (11:41)
[2024-04-28] MEDS ORDERED: ONDANSETRON *ODT* 4 MG TABLET SL PRN (11:41)
[2024-04-28] MEDS ORDERED: METHOCARBAMOL 500 MG TABLET PO PRN (11:41)
[2024-04-28] MEDS ORDERED: LOPERAMIDE HCL 2 MG CAPSULE PO PRN (11:41)
[2024-04-28] MEDS ORDERED: ACETAMINOPHEN 325 MG TABLET (FP) PO PRN (11:41)
[2024-04-28] MEDS ORDERED: BENZONATATE 200 MG CAPSULE PO PRN (11:41)
[2024-04-28] MEDS: PRENATAL VITAMINS W/ FOLIC ACID TABLET (FP) PO SCH (12:04)
[2024-04-28] MEDS: hydrOXYzine PAMOATE 25 MG CAPSULE (FP) PO PRN (12:50)
[2024-04-28] MEDS: chlordiazePOXIDE HCL 25 MG CAPSULE PO PRN (12:50)
[2024-04-28 13:16] VITALS: RESP 16
[2024-04-28] MEDS: chlordiazePOXIDE HCL 25 MG CAPSULE PO SCH (17:46)
[2024-04-28 20:35] VITALS: BP 124/72; PULSE 72; TEMP 97.6
[2024-04-28] MEDS: BACITRACIN 0.9 GM PACKET TP SCH (22:21)
[2024-04-28] MEDS: THIAMINE 100 MG TABLET PO SCH (22:21)
[2024-04-28] MEDS: MELATONIN 5 MG TABLETS PO SCH (22:22)
[2024-04-30] MEDS ORDERED: chlordiazePOXIDE HCL 25 MG CAPSULE PO SCH (05:00)
[2024-05-01] MEDS ORDERED: chlordiazePOXIDE HCL 10 MG CAPSULE PO PRN
[2024-05-01] MEDS ORDERED: chlordiazePOXIDE HCL 10 MG CAPSULE PO SCH (05:00)
[2024-05-02] MEDS ORDERED: chlordiazePOXIDE HCL 10 MG CAPSULE PO SCH (05:00)
[2024-05-03] MEDS ORDERED: chlordiazePOXIDE HCL 10 MG CAPSULE PO ONE (05:00)
== END 2024-04-29 07:20 | disposition left against medical advice (07) | DRG 775 ==
LOC: YASAS 10:48 → Y6N 12:12
PROVIDERS: ADMIT Allergy & Immunology; ATTEND Allergy & Immunology
PROC: HZ2ZZZZ Detoxification Services for Substance Abuse Treatment (ICD-10-PCS; principal; 2024-04-28)
DX: F10.230 Alcohol dependence with withdrawal, uncomplicated (principal); F41.9 Anxiety disorder, unspecified; E78.5 Hyperlipidemia, unspecified; G47.00 Insomnia, unspecified; M54.50 Low back pain, unspecified; G89.29 Other chronic pain; F91.8 Other conduct disorders; Z91.199 Patient's noncompliance with other medical treatment and regimen due to unspecified reason; Z59.00 Homelessness unspecified
CPT/HCPCS: 80305; 80307; 93005; 93010